=== PATIENT | male | born 1990 | race Caucasian/White ===

== ENCOUNTER 2022-05-17 22:43 | Emergency (ER) | payer BC ==
--- NOTE | 2022-05-17 23:19 | ERPHSYRPT ---
- History of Present Illness Historian: patient Exam Limitations: other (Poor historian) Patient Subjective Stated Complaint: pt has pain in umbilical area. states he has a burning sensation in abdomen since friday. 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 Triage Nursing Assessment: pt ambulated back to room, alert and oriented, states no pain but has a burning sensation in abdomen. vitals are WNL no fever. Physician History: 31 yo wm w generalized abdominal pain x 3 days. Pt states that it was originally centered around his umbilical hernia but became generalized. Pain described as a burning sensation which is better when lying flat. Pain is 3/10 and has been up to a 6/10. He denies N/V/D/chest pain/fever/dysuria/hematuria. he has had the umbilical hernia for 1.[address] Dr[address] Mayes about it. Timing/Duration: other (3 days) Activities at Onset: rest Quality: burning Abdominal Pain Onset Location: generalized abdomen Pain Radiation: no radiation Severity of Pain-Max: moderate Severity of Pain-Current: mild Modifying Factors: Improves With: lying down (Better when lying down) Associated Symptoms: heartburn, No back, No chest pain, No diaphoresis, No diarrhea, No fever/chills, No fatigue, No headache, No loss of appetite, No nausea, No neck pain, No rash, No shortness of breath Previous symptoms: no prior history Allergies/Adverse Reactions: No Known Drug Allergies Allergy (Unverified 04/11/13 17:17) Hx Tetanus, Diphtheria Vaccination/Date Given: No Hx Influenza Vaccination/Date Given: No Hx Pneumococcal Vaccination/Date Given: No Travel Risk - International Travel Have you traveled outside of the country in past 3 weeks: No - Coronavirus Screening Are you exhibiting any of the following symptoms?: No Close contact with a COVID-19 positive Pt in past 14-21 Days: No - Vaccine Status Have you recieved a Covid-19 vaccination: No - Review of Systems Constitutional: No Symptoms Eyes: No Symptoms Ears, Nose, & Throat: No Symptoms Respiratory: No Symptoms Cardiac: No Symptoms Abdominal/Gastrointestinal: No Symptoms, Abdominal Pain Genitourinary Symptoms: No Symptoms Musculoskeletal: No Symptoms Skin: No Symptoms Neurological: No Symptoms Psychological: No Symptoms Endocrine: No Symptoms Hematologic/Lymphatic: No Symptoms Immunological/Allergic: No Symptoms - Past Medical History Pertinent Past Medical History: No Neurological History: No Pertinent History ENT History: No Pertinent History Cardiac History: No Pertinent History Respiratory History: No Pertinent History Endocrine Medical History: No Pertinent History Musculoskeletal History: No Pertinent History GI Medical History: No Pertinent History History: No Pertinent History Psycho-Social History: No Pertinent History Male Reproductive Disorders: No Pertinent History - Past Surgical History Past Surgical History: No Neuro Surgical History: No Pertinent History Cardiac: No Pertinent History Respiratory: No Pertinent History Gastrointestinal: No Pertinent History Genitourinary: No Pertinent History Musculoskeletal: No Pertinent History Male Surgical History: No Pertinent History - Social History Smoking Status: Never smoker Exposure to second hand smoke: No Drug Use: none Patient Lives Alone: No Significant Family History: no pertinent family hx - Nursing Vital Signs Nursing Vital Signs: Initial Vital Signs Temperature 98.9 F 05/17/22 22:53 Pulse Rate 89 05/17/22 22:53 Respiratory Rate 18 05/17/22 22:53 Blood Pressure 142/95 05/17/22 22:53 O2 Sat by Pulse Oximetry 97 05/17/22 22:53 Pain Scale Pain Intensity 0 Hypertensive - Physical Exam General Appearance: no apparent distress Eye Exam: PERRL/EOMI, eyes nml inspection Ears, Nose, Throat Exam: normal ENT inspection, TMs normal, pharynx normal, moist mucous membranes Neck Exam: normal inspection, non-tender, supple, full range of motion, No meningismus, No mass, No Brudzinski, No Kernig's, No carotid bruit Respiratory Exam: normal breath sounds, lungs clear, airway intact Cardiovascular Exam: regular rate/rhythm, normal heart sounds, normal peripheral pulses, capillary refill <2 sec, No murmur Gastrointestinal/Abdomen Exam: soft, normal bowel sounds, tenderness (Mild diffuse TTP wo guarding or rebound/Reducible umbilical hernia) Back Exam: normal inspection, normal range of motion, No CVA tenderness, No vertebral tenderness Extremity Exam: normal inspection, normal range of motion Neurologic Exam: alert, oriented x 3, cooperative, jelly filter tender II-XII nml as tested, normal mood/affect, nml cerebellar function, nml station & gait, sensation nml Skin Exam: normal color, warm, dry, No rash Lymphatic Exam: No adenopathy SpO2 Interpretation: normal SpO2: 97 O2 Delivery: Room Air - Course EKG Interpreted by Me: RATE (NSR/Rate79/Normal QT-QTc/No acute ST segment ch anges) Ordered Tests: Active Orders 24 hr Category Date Time Status EKG-ER Only STAT Care 05/17/22 23:13 Completed AMYLASE Stat Lab 05/17/22 23:34 Completed CBC W DIFF Stat Lab 05/17/22 23:34 Completed CMP Stat Lab 05/17/22 23:34 Completed LIPASE Stat Lab 05/17/22 23:34 Completed Manual Differential NC Stat Lab 05/17/22 23:34 Completed TROPONIN Q4H Lab 05/17/22 23:34 Completed Lab/Rad Data: Laboratory Result Diagrams 05/17/22 23:34 05/17/22 23:34 Laboratory Results 05/17/22 05/17/22 05/17/22 Range/Units 23:34 23:34 23:34 WBC 7.6 (4.0-10.5) x10^3/uL RBC 4.52 (4.1-5.6) x10^6/uL Hgb 13.9 (12.5-18.0) g/dL Hct 41.0 L (42-50) % MCV 90.7 (78-100) fL MCH 30.8 (26-32) pg MCHC 33.9 (32-36) g/dL RDW 12.5 (11.5-14.0) % Plt Count 283 (150-450) x10^3/uL MPV 9.6 (7.5-11.0) fL Gran % 59.5 (36.0-66.0) % Immature Gran % (Auto) 0.3 (0.00-0.4) % Nucleat RBC Rel Count 0.0 (0.00-0.1) % Eos # (Auto) 0.11 (0-0.5) x10^3/uL Immature Gran # (Auto) 0.02 (0.00-0.03) x10^3u/L Absolute Lymphs (auto) 2.38 (1.0-4.6) x10^3/uL Absolute Monos (auto) 0.53 (0.0-1.3) x10^3/uL Absolute Nucleated RBC 0.00 (0.00-0.01) x10^3u/L Lymphocytes % 31.4 (24.0-44.0) % Monocytes % 7.0 (0.0-12.0) % Eosinophils % 1.4 (0.00-5.0) % Basophils % 0.4 (0.0-0.4) % Absolute Granulocytes 4.52 (1.4-6.9) x10^3/uL Basophils # 0.03 (0-0.4) x10^3/uL Sodium 137 (137-145) mmol/L Potassium 3.9 (3.5-5.1) mmol/L Chloride 103 (98-107) mmol/L Carbon Dioxide 28 (22-30) mmol/L Anion Gap 10.0 (5-15) MEQ/L BUN 13 (9-20) mg/dL Creatinine 1.00 (0.66-1.25) mg/dL Estimated GFR > 60.0 ML/MIN Glucose 105 (74-106) mg/dL Calcium 9.1 (8.4-10.2) mg/dL Total Bilirubin 0.60 (0.2-1.3) mg/dL AST 25 (17-59) U/L ALT 25 (0-50) U/L Alkaline Phosphatase 70 (38-126) U/L Troponin I < 0.012 (0.000-0.034) ng/mL Serum Total Protein 7.2 (6.3-8.2) g/dL Albumin 4.4 (3.5-5.0) g/dL Amylase 66 (30-110) U/L Lipase 125 (23-300) U/L - Progress Progress Note: 05/18/22 00:37 Pt refused pain meds Counseled pt/family regarding: lab results, diagnosis, need for follow-up - Departure Departure Disposition: Home Clinical Impression: Abdominal pain, Umbilical hernia Condition: Stable Critical Care Time: No Referrals: SANDRA MAYES [Primary Care Provider] - Follow up/PCP as directed Instructions: Severe Abdominal Pain, Adult (DC), Umbilical Hernia, Adult Additional Instructions: Follow up with Dr. Mayes Return to ER for increasing pain or temperature greater than 100.5
[2022-05-17 23:37] LABS: Absolute Neutrophil Ct (ANC) 4.52 x10^3/uL (1.4-6.9); Basophil (Absolute #) 0.03 x10^3/uL (0-0.4); Eosinophil % 1.4 % (0.00-5.0); Eosinophil (Absolute #) 0.11 x10^3/uL (0-0.5); Hemoglobin 13.9 g/dL (12.5-18.0); Lymphocyte (Absolute #) 2.38 x10^3/uL (1.0-4.6); Lymphocytes % 31.4 % (24.0-44.0); Mean Cell Volume 90.7 fL (78-100); Mean Corpuscular Hemoglobin 30.8 pg (26-32); Mean Corpuscular Hgb Concent. 33.9 g/dL (32-36); Mean Platelet Volume 9.6 fL (7.5-11.0); Monocyte (Absolute #) 0.53 x10^3/uL (0.0-1.3); Neutrophil % 59.5 % (36.0-66.0); Platelet Count 283 x10^3/uL (150-450); Red Blood Count 4.52 x10^6/uL (4.1-5.6); Red Cell Distribution Width 12.5 % (11.5-14.0); White Blood Count 7.6 x10^3/uL (4.0-10.5)
[2022-05-17 23:50] LABS: ALBUMIN 4.4 g/dL (3.5-5.0); ALKALINE PHOSPHATASE 70 U/L (38-126); AMYLASE 66 U/L (30-110); BLOOD UREA NITROGEN 13 mg/dL (9-20); CHLORIDE 103 mmol/L (98-107); Calcium 9.1 mg/dL (8.4-10.2); Carbon Dioxide 28 mmol/L (22-30); EST GLOMERULAR FILTRATION RATE > 60.0 ML/MIN; Glucose 105 mg/dL (74-106); LIPASE 125 U/L (23-300); Potassium 3.9 mmol/L (3.5-5.1); SGOT/AST 25 U/L (17-59); SGPT/ALT 25 U/L (0-50); SODIUM 137 mmol/L (137-145); Total Protein 7.2 g/dL (6.3-8.2)
[2022-05-18 00:14] VITALS: BP 120/78; PULSE 82
[2022-05-18 00:40] VITALS: O2SAT 97
== END 2022-05-18 00:46 | disposition home or self-care (01) ==
LOC: ED 22:43
DX: K42.9 Umbilical hernia without obstruction or gangrene (principal); R10.84 Generalized abdominal pain; Z28.310 Unvaccinated for COVID-19
CPT/HCPCS: 36415; 80053; 82150; 83690; 84484; 85025; 93005; 99283

== ENCOUNTER 2023-08-14 10:29 | Day surgery (SDC) | payer BC ==
--- NOTE | 2023-08-13 09:56 | HP ---
DATE OF SURGERY: 08/14/2023 HISTORY OF PRESENT ILLNESS: The patient is a 32-year-old male who presents with complaints of a hernia of the umbilicus. He has had it for three years. It is not too painful but he sees a bulge. PAST MEDICAL HISTORY: None. PAST SURGICAL HISTORY: None. ALLERGIES: NKDA. MEDICATIONS: None. FAMILY HISTORY: None reported. SOCIAL HISTORY: Former smoker. REVIEW OF SYSTEMS: CONSTITUTIONAL: Denies fever or chills. CHEST: Denies shortness of breath. CVS: Denies chest pain. ABDOMEN: Reports abdominal pain. PHYSICAL EXAMINATION: GENERAL: No acute distress. CHEST: Nonlabored. No shortness of breath. CVS: Regular rate and rhythm. ABDOMEN: Soft with incarcerated small umbilical hernia. IMPRESSION: Incarcerated small umbilical hernia. PLAN: Umbilical hernia repair with possible mesh with Dr. Daniel Decker. As dictated by Gwen Garcia NP.
[~2023-08-14 10:29] MED LIST: Sensorcaine 0.25% 10 ML ONE
[2023-08-14] MEDS ORDERED: Lactated Ringers 1,000 ML IV SCH (10:30)
[2023-08-14] MEDS ORDERED: CEFAZOLIN 2 GM-D5W BAG** 2 GM/50 ML ML IV SCH (10:30)
[2023-08-14] MEDS ORDERED: CEFAZOLIN 2 GM-D5W BAG** 2 GM/50 ML ML IV ONE (10:40)
[2023-08-14 10:53] VITALS: RESP 16
[2023-08-14] MEDS ORDERED: Versed 2 MG/2 ML Injection ONE (12:19)
[2023-08-14] MEDS ORDERED: SUBLIMAZE 250 MCG/5 ML ONE (12:19)
[2023-08-14] MEDS ORDERED: Zemuron 100 MG/10 ML ONE (12:19)
[2023-08-14] MEDS ORDERED: DIPRIVAN 200 MG/20 ML IV ONE (12:19)
[2023-08-14] MEDS ORDERED: BENADRYL 50 MG/ML ONE (13:06)
[2023-08-14] MEDS ORDERED: Epinephrine Preservative Free 1 MG/ML ONE (13:13)
[2023-08-14] MEDS ORDERED: Naropin 0.5% 30 ML VIAL ONE (13:13)
[2023-08-14] MEDS ORDERED: BRIDION 200MG/2ML IV ONE (14:00)
[2023-08-14] MEDS ORDERED: DEMEROL 50 MG ONE (14:31)
[2023-08-14] MEDS ORDERED: SUBLIMAZE 100 MCG/2 ML ONE (14:56)
[2023-08-14 15:59] VITALS: BP 163/80; PULSE 74; TEMP 97.9; O2SAT 99
--- NOTE | 2023-08-15 08:45 | OP ---
SURGERY DATE/TIME: 08/14/2023 1318 PREOPERATIVE DIAGNOSIS: Symptomatic umbilical hernia. POSTOPERATIVE DIAGNOSIS: Incarcerated umbilical hernia. PROCEDURES: 1) Open primary umbilical herniorrhaphy. 2) Resection of the torsion of the abdominal omentum. SURGEON: Daniel Decker M.D. ANESTHESIA: General. COMPLICATIONS: None. CONDITION: Stable. DESCRIPTION OF PROCEDURE: Taken to surgery. Time out performed. General anesthetic. Infraumbilical incision. It was necessary to remove about 4 inches of omentum this was taken and the skin clamped and tied. Two corner sutures #1 Prolene, two additional figure-of-8 and 0 Prolene. An additional #1 PDS that was placed right in the mid portion of the figure-of-8. Satisfactory repair was present with no mesh. Subcutaneous tissue irrigated. Skin closed with 4-0 Vicryl. Compression umbilical dressing applied. The patient tolerated the procedure satisfactorily. Instructions were given.
== END 2023-08-14 16:13 | disposition home or self-care (01) ==
LOC: SDC 10:29
PROVIDERS: ATTEND Surgery
DX: K42.0 Umbilical hernia with obstruction, without gangrene (principal)
CPT/HCPCS: 64488; 76937; J0171; J0690; J1200; J2175; J2250; J2704; J2795; J3010; L0625